=== PATIENT | female | born 1995 | race Caucasian/White ===

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

== ENCOUNTER 2017-04-09 17:22 | Emergency (ER) | payer MEDICAID, OTHER ==
[2017-04-09 17:46] VITALS: BP 118/78
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
== END 2017-04-09 18:55 | disposition home or self-care (01) ==
LOC: MW.ED 17:22
DX: M62.838 Other muscle spasm (principal); Z88.1 Allergy status to other antibiotic agents; V59.40XA Driver of pick-up truck or van injured in collision with unspecified motor vehicles in traffic accident, initial encounter; Y92.410 Unspecified street and highway as the place of occurrence of the external cause
CPT/HCPCS: 72040; 72040-26; 99283